=== PATIENT | male | born 1990 | race Caucasian/White ===

== ENCOUNTER 2021-06-19 01:06 | Emergency (ER) | payer OTHER ==
[2021-06-19] MEDS ORDERED: IBUPROFEN800 MG PO (03:14)
== END 2021-06-19 03:35 ==
LOC: FER 01:06
DX: S01.511A Laceration without foreign body of lip, initial encounter (principal); S00.83XA Contusion of other part of head, initial encounter; Z88.0 Allergy status to penicillin; W17.89XA Other fall from one level to another, initial encounter; Y93.01 Activity, walking, marching and hiking; Y92.149 Unspecified place in prison as the place of occurrence of the external cause
CPT/HCPCS: 70450; 70486; 72125; 96372; J1170; J1885; J2405

== ENCOUNTER 2021-09-18 13:35 | Emergency (ER) | payer OTHER ==
[~2021-09-18 13:35] MED LIST: IBUPROFEN800 MG PO
== END 2021-09-18 15:44 | disposition home or self-care (01) ==
LOC: FER 13:35
DX: S63.502A Unspecified sprain of left wrist, initial encounter (principal); Z88.0 Allergy status to penicillin; W19.XXXA Unspecified fall, initial encounter; Z28.310 Unvaccinated for COVID-19
CPT/HCPCS: 73030; 73100; 96372; J1100

== ENCOUNTER 2021-10-11 13:30 | Emergency (ER) | payer OTHER ==
[~2021-10-11] VITALS: Ht 190.5 cm; Wt 90.7 kg
[2021-10-11] MEDS ORDERED: BACTRIM DS TAB1 EACH PO (16:58)
== END 2021-10-11 17:10 | disposition home or self-care (01) ==
LOC: FER 13:30
DX: L02.511 Cutaneous abscess of right hand (principal); Z88.0 Allergy status to penicillin; Z28.310 Unvaccinated for COVID-19

== ENCOUNTER 2021-10-16 16:54 | Emergency (ER) | payer OTHER ==
[~2021-10-16 16:54] MED LIST changes: +BACTRIM DS TAB1 EACH PO
[2021-10-16 17:32] LABS: BASOPHIL 0.2 % (0-2); EOSINOPHIL 2.4 % (0-5); HCT 45.9 % (42.0-52.0); HGB 15.1 g/dl (13.2-18.0); LYMPHOCYTE 20.7 % (15-48); MCH 31.2 pg (25.0-31.0); MCHC 32.9 g/dL (32.0-36.0); MCV 94.8 fL (78.0-100.0); MONOCYTE 7.4 % (0-12); NEUTROPHIL 69.1 % (41-80); NRBC 0; PLT 430 K/uL (150-400); RBC 4.84 M/uL (4.70-6.00); RDW 12.5 % (11.5-14.0); WBC 8.8 K/uL (4.0-10.5)
[2021-10-16 17:48] LABS: ALBUMIN 3.9 g/dL (3.4-5.0); BILIRUBIN - TOTAL 0.3 mg/dL (0.2-1.0); BUN/CREAT RATIO (CALC) 14.1 RATIO; CREATININE 0.78 mg/dL (0.67-1.17); POTASSIUM 4.1 mmol/L (3.5-5.1); TOTAL PROTEIN 6.9 g/dL (6.4-8.2)
[2021-10-16 17:53] LABS: LACTIC ACID 0.9 mmol/L (0.4-1.9)
== END 2021-10-16 19:05 | disposition other institution (70) ==
LOC: FER 16:54
PROVIDERS: Physician Assistant
DX: L03.011 Cellulitis of right finger (principal); F17.210 Nicotine dependence, cigarettes, uncomplicated; Z23 Encounter for immunization; Z88.0 Allergy status to penicillin; Z28.310 Unvaccinated for COVID-19
CPT/HCPCS: 36415; 73130; 80053; 83605; 85025; 87040; 90471; 90714; 90715; J7030

== ENCOUNTER 2021-11-03 13:12 | Emergency (ER) | payer OTHER ==
[2021-11-03] MEDS ORDERED: BLEPH-10 O20 DROPS/M EYERT (14:33)
== END 2021-11-03 15:09 | disposition home or self-care (01) ==
LOC: FER 13:12
DX: H57.9 Unspecified disorder of eye and adnexa (principal); Z88.0 Allergy status to penicillin; Z28.310 Unvaccinated for COVID-19
CPT/HCPCS: 99282

== ENCOUNTER 2021-12-27 13:59 | Emergency (ER) | payer OTHER ==
[~2021-12-27 13:59] MED LIST changes: +BLEPH-10 O20 DROPS/M EYERT
[2021-12-27] MEDS ORDERED: CEPHALEXIN500 MG PO (17:37)
[2021-12-27] MEDS ORDERED: CLEOCIN300 MG PO (17:37)
== END 2021-12-27 17:43 | disposition home or self-care (01) ==
LOC: FER 13:59
DX: K13.0 Diseases of lips (principal); Z88.0 Allergy status to penicillin
CPT/HCPCS: 87070; 87205; 99283